=== PATIENT | male | born 1990 | race Two or more races ===

== ENCOUNTER 2023-09-16 05:13 | Emergency (ER) | payer OTHER ==
[~2023-09-16] VITALS: Ht 175.3 cm; Wt 63.5 kg
[2023-09-16] MEDS ORDERED: CLINDAMYCIN PHOSPHATE 150 MG/ML (600mg) IM STA (06:11)
[2023-09-16] MEDS ORDERED: CLINDAMYCIN PHOSPHATE 150 MG/ML (300mg) ONE (06:13)
== END 2023-09-16 06:22 | disposition home or self-care (01) ==
LOC: ER 05:14
DX: L03.818 Cellulitis of other sites (principal)

== ENCOUNTER 2024-03-19 15:27 | Emergency (ER) | payer OTHER ==
[~2024-03-19] VITALS: Ht 175.3 cm; Wt 68.0 kg
[2024-03-19] MEDS ORDERED: KETO10TA2 PO (17:48)
[2024-03-19] MEDS ORDERED: ANALPRAM HC 2.530 GM RECTAL (17:48)
== END 2024-03-19 20:14 | disposition home or self-care (01) ==
LOC: ER 15:29
DX: K62.89 Other specified diseases of anus and rectum (principal); K64.8 Other hemorrhoids

== ENCOUNTER 2024-03-22 07:41 | Emergency (ER) | payer OTHER ==
[~2024-03-22] VITALS: Ht 175.3 cm; Wt 65.8 kg
[~2024-03-22 07:41] MED LIST: ANALPRAM HC 2.530 GM RECTAL; KETO10TA2 PO
[2024-03-22] MEDS ORDERED: LIDOCAINE HCL 1% 10ML VIAL PERCUT ONE (09:15)
[2024-03-22] MEDS ORDERED: ACETAMINOPHEN WITH CODEINE 1 UDTAB TABLET PO ONE (09:15)
[2024-03-22] MEDS ORDERED: KETOROLAC TROMETHAMINE 60 MG VIAL IM ONE ×2 (09:15→09:17)
[2024-03-22] MEDS ORDERED: CEFTRIAXONE SODIUM 2,000 MG VIAL IV ONE (09:15)
[2024-03-22] MEDS ORDERED: CEFTRIAXONE SODIUM 2,000 MG VIAL ONE (09:17)
== END 2024-03-22 10:40 | disposition home or self-care (01) ==
LOC: ER 07:43
DX: K61.1 Rectal abscess (principal)

== ENCOUNTER 2024-05-09 17:53 | Emergency (ER) | payer OTHER ==
[~2024-05-09] VITALS: Ht 172.7 cm; Wt 68.0 kg
[2024-05-09] MEDS ORDERED: CEFTRIAXONE SODIUM 1,000 MG VIAL IM ONE (18:30)
[2024-05-09] MEDS ORDERED: KETOROLAC TROMETHAMINE 60 MG VIAL IM ONE ×2 (18:30→18:53)
[2024-05-09] MEDS ORDERED: TETANUS & DIPHTHERIA TOX,ADULT 0.5 ML VIAL IM ONE (18:30)
[2024-05-09] MEDS ORDERED: CEFTRIAXONE SODIUM 1,000 MG VIAL ONE (18:54)
== END 2024-05-10 06:24 | disposition designated cancer center or children's hospital (05) ==
LOC: ER 17:56
DX: S61.210A Laceration without foreign body of right index finger without damage to nail, initial encounter (principal); S61.212A Laceration without foreign body of right middle finger without damage to nail, initial encounter; W27.0XXA Contact with workbench tool, initial encounter; Y93.89 Activity, other specified; Y92.89 Other specified places as the place of occurrence of the external cause; Y99.8 Other external cause status
CPT/HCPCS: 73120; 90471; 90714; 96372; J1670

== ENCOUNTER 2024-07-26 16:57 | Emergency (ER) | payer OTHER ==
[~2024-07-26] VITALS: Ht 175.3 cm; Wt 63.5 kg
[2024-07-26] MEDS ORDERED: CEFTRIAXONE SODIUM 2,000 MG VIAL IV ONE (20:00)
[2024-07-26] MEDS ORDERED: CEFTRIAXONE SODIUM 2,000 MG VIAL ONE (20:45)
[2024-07-26 21:05] LABS: BASO % 0.5 % (0.1-1.2); EOS # 0.26 (0.04-0.54); EOS % 1.7 % (0.7-7.0); HEMATOCRIT 36.6 % (40.1-51.0); HEMOGLOBIN 12.2 g/dL (13.7-17.5); LYMPH # 3.11 (1.18-3.74); LYMPH % 20.6 % (19.3-53.1); MONO # 1.64 (0.24-0.82); MONO % 10.9 % (4.7-12.5); NEUT # 9.93 (1.56-6.13); NEUT % 65.8 % (34.0-71.1); PLATELET COUNT 246 K/uL (163-369); RED BLOOD COUNT 4.21 M/uL (4.63-6.08); RED CELL DISTRIBUTION WIDTH 12.8 % (11.6-14.4)
[2024-07-26 21:09] LABS: ERYTHROCYTE SEDIMENTATION RATE 48 mm/hr (0-15)
[2024-07-26] MEDS ORDERED: VANCOMYCIN HCL 1,000 MG VIAL IV ONE (23:00)
[2024-07-26] MEDS ORDERED: VANCOMYCIN HCL 1,000 MG VIAL ONE ×2 (23:25→23:45)
[2024-07-27] MEDS ORDERED: KETOROLAC TROMETHAMINE 30 MG VIAL IV STA (01:38)
[2024-07-27] MEDS ORDERED: KETOROLAC TROMETHAMINE 30 MG VIAL ONE (01:40)
== END 2024-07-27 02:08 | disposition home or self-care (01) ==
LOC: ER 16:59
PROVIDERS: Preventive Medicine Public Health & General Preventive Medicine
DX: L02.511 Cutaneous abscess of right hand (principal)

== ENCOUNTER 2024-07-27 15:15 | Inpatient (IN) | payer OTHER ==
[~2024-07-27] VITALS: Ht 175.3 cm; Wt 63.5 kg
[2024-07-27] MEDS ORDERED: CEFTRIAXONE SODIUM 2,000 MG VIAL IV STA (15:42)
[2024-07-27] MEDS ORDERED: CEFTRIAXONE SODIUM 2,000 MG VIAL ONE (15:58)
[2024-07-27 17:19] LABS: BASO % 0.5 % (0.1-1.2); EOS # 0.27 (0.04-0.54); EOS % 2.1 % (0.7-7.0); HEMATOCRIT 37.8 % (40.1-51.0); HEMOGLOBIN 12.8 g/dL (13.7-17.5); LYMPH # 2.55 (1.18-3.74); LYMPH % 20.2 % (19.3-53.1); MONO # 1.17 (0.24-0.82); MONO % 9.3 % (4.7-12.5); NEUT # 8.51 (1.56-6.13); NEUT % 67.6 % (34.0-71.1); PLATELET COUNT 264 K/uL (163-369); RED BLOOD COUNT 4.42 M/uL (4.63-6.08); RED CELL DISTRIBUTION WIDTH 12.8 % (11.6-14.4)
[2024-07-27 17:46] LABS: ALBUMIN 3.2 gm/dL (3.4-5.0); BILIRUBIN TOTAL 0.36 mg/dL (0.3-1.2); CALCIUM 8.8 mg/dL (8.5-10.1); CREATININE SERUM 0.89 mg/dL (0.70-1.30); GFR 98.44; GLOBULINA 3.9 G/DL (2.4-3.5); POTASSIUM 4.13 mEq/L (3.5-5.1); TOTAL PROTEIN 7.1 gm/dL (6.4-8.2)
[2024-07-27] MEDS ORDERED: 0.9 % SODIUM CHLORIDE 1,000 ML IV SCH (18:45)
[2024-07-27] MEDS ORDERED: ACETAMINOPHEN 325 MG TABLET PO PRN (18:45)
[2024-07-27] MEDS ORDERED: KETOROLAC TROMETHAMINE 30 MG VIAL IU PRN (18:45)
[2024-07-27] MEDS ORDERED: VANCOMYCIN HCL 1,000 MG VIAL IV SCH (21:00)
[2024-07-28 02:21] VITALS: BP 99/56; O2SAT 97
[2024-07-28] MEDS ORDERED: FAMOTIDINE/PF 20 MG/2 ML VIAL IV SCH (09:00)
[2024-07-28 09:22] VITALS: BP 102/62; O2SAT 98
[2024-07-28 18:32] VITALS: BP 108/63
[2024-07-28] MEDS ORDERED: CEFTRIAXONE SODIUM 2,000 MG VIAL IV SCH (19:21)
[2024-07-28] MEDS ORDERED: LINEZOLID 600 MG TABLET PO SCH (21:00)
[2024-07-28] MEDS ORDERED: VANCOMYCIN HCL 5 MG/ML REDILUIDO IV SCH (21:00)
[2024-07-29 02:44] VITALS: BP 125/62; O2SAT 99
[2024-07-29 10:06] VITALS: BP 94/50
[2024-07-29 17:41] VITALS: BP 132/60
[2024-07-30 01:52] VITALS: BP 109/67; O2SAT 99
[2024-07-30 08:43] VITALS: BP 110/50; O2SAT 97
== END 2024-07-30 14:54 | disposition left against medical advice (07) | DRG 603 ==
LOC: ER 15:15 → MEDJ 19:36
PROVIDERS: General Practice; ADMIT Internal Medicine; ATTEND Internal Medicine
PROC: BP4NZZZ Ultrasonography of Right Hand (ICD-10-PCS; principal; 2024-07-27)
PROC: BP3CZZZ Magnetic Resonance Imaging (MRI) of Right Hand/Finger Joint (ICD-10-PCS; 2024-07-29)
DX: L02.511 Cutaneous abscess of right hand (principal); L03.113 Cellulitis of right upper limb; S61.451A Open bite of right hand, initial encounter; W57.XXXA Bitten or stung by nonvenomous insect and other nonvenomous arthropods, initial encounter
CPT/HCPCS: 73218